=== PATIENT | male | born 1960 | race Caucasian/White ===

== ENCOUNTER 2024-04-09 15:04 | Emergency (ER) | payer BC, SELFPAY ==
[2024-04-09 15:12] VITALS: BP 132/82; PULSE 66; RESP 16; TEMP 36.5; O2SAT 96; BMI 26.6
--- NOTE | 2024-04-09 16:06 | ED_ITS ---
HPI - General Adult General Chief complaint: Laceration/Wound Stated complaint: Stitches, head injury, Time Seen by Provider: 04/09/24 15:29 History of Present Illness HPI narrative: Patient is a 64 year white male who was skating with his grandson, he is getting backwards apparently fell down thinks he might have got cut by his grandson skate over his right eye he has got about a 2-1/2 inch laceration over his right eye brow. Good hemostasis it is gaping slightly. He has no headache no nausea, no vomiting, did not report hitting his head hard. Does not have a headache. He is not on any blood thinners. He has got no full full call neurologic findings. His reports that when she is on fall he did slide on the ice. Certainly could have cut himself on the ice as well. Related Data Home Medications ?Medication ?Instructions ?Recorded ?Confirmed No Known Home Medications 04/09/24 04/09/24 Allergies Allergy/AdvReac Type Severity Reaction Status Date / Time No Known Drug Allergies Allergy Verified 04/09/24 15:18 Review of Systems Status of ROS: Reports: 6 or more systems reviewed and unremarkable except as noted in History and below [facility] Social History Smoking Status: Never smoker How often do you have a drink containing alcohol: never AUDIT-C Alcohol total score: 0 Non-prescribed substance use: denies use Exam Narrative: Exam Narrative: Objective: Patient's vital signs are within normal limits He is alert orient x3 no distress He has got about a 2-1/2 inch laceration over his right eyebrow in the Nikky line area running from medial to lateral in the shape of his eyebrow. Gape slightly It is somewhat deep, but he has good eye opening and closure with good muscular action. I do not see any muscular rents or damage to the muscles around the eye. I am able to deeply clean the wound irrigated and injected with 1% xylocaine without epinephrine for anesthesia. He has no evident eye trauma his gross visual acuity is normal. Const: Vital Signs, click to edit/add: Vital Signs - 24 hr 04/09/24 15:12 Temperature 97.7 F Pulse Rate [Left P ulse Oximeter] 66 Respiratory Rate 16 Blood Pressure [Ri ght Upper Arm] 132/82 Pulse Oximetry 96 Oxygen Delivery Me thod Room Air Course Vital Signs Vital signs: Initial Vital Signs Temperature 97.7 F 04/09/24 15:12 Temperature Source Oral 04/09/24 15:12 Pulse Rate 66 04/09/24 15:12 Respiratory Rate 16 04/09/24 15:12 Blood Pressure 132/82 04/09/24 15:12 Blood Pressure Mean 98 04/09/24 15:12 Blood Pressure Position Sitting 04/09/24 15:12 Pulse Oximetry 96 04/09/24 15:12 Oxygen Delivery Method Room Air 04/09/24 15:12 Vital Signs Temperature 97.7 F 04/09/24 15:12 Pulse Rate 66 04/09/24 15:12 Respiratory Rate 16 04/09/24 15:12 Blood Pressure 132/82 04/09/24 15:12 Pulse Oximetry 96 04/09/24 15:12 Oxygen Delivery Method Room Air 04/09/24 15:12 Temperature 97.7 F 04/09/24 15:12 Pulse Rate 66 04/09/24 15:12 Respiratory Rate 16 04/09/24 15:12 Blood Pressure 132/82 04/09/24 15:12 Pulse Oximetry 96 04/09/24 15:12 Oxygen Delivery Method Room Air 04/09/24 15:12 Medical Decision Making MDM Narrative Medical decision making narrative: [age] year white male up-to-date on tetanus without any significant medical history, presents with a large laceration over his right eye. It was closed with 3 simple and interrupted Vicryl sutures 2 Perclose wound edge closure these are absorbable and then 3 and 4-0 simple interrupted Ethilon superficially. Good skin edge approximation good hemostasis there were 7 sutures put in super specially. Patient reviewed the repair after it was completed he felt good about it as well. His is also here and agreed that it looks adequate. Careful examination after repair shows good eye closure on eye opening, no abnormal medial lateral eye movements. Normal gaze. Normal light reflex. Patient should get his sutures out in about 6-7 days I will put on Keflex 500 q.i.d. x7 days, Tylenol as needed, avoid Advil or aspirin. Would also recommend close head trauma observation q.2 hours for 8 hours. This was discussed in detail with the including pupil inequality, nausea vomiting, somnolence. They will call back there is question concerns. Medication was dispensed through [facility] Discharge Plan Discharge Clinical Impression: Laceration Patient Disposition: Home w/ Parent or Adult Condition: Improved Additional Instructions: Removal in 6-7 days. Keflex 500 q.i.d. x5 days. Tylenol as needed, avoid aspirin or Advil. Light activity for the next several days. Closed head trauma observation for the next 8 hours q.2 hours check for pupils, nausea, headache. Return if problems or concerns. Watch for redness infection. You are up-to-date on your tetanus shot. Activity Level: Light activity Discharge Diet: Regular Prescriptions: No Action No Known Home Medications Stand Alone Forms: [employer] Info Instructions
--- OUTSIDE RECORDS SUMMARY | 2024-04-09 16:13 | XMS_ITS | Clinical Summary ---
Author Organization [facility] Address [place], [place] [address] Care Team Providers Care Media Clerk Name Role Phone Ugo Gonzalez MD Primary Care Provider Allergies No known active allergies Medications benzonatate (TESSALON) 100 mg capsuleIndicatio ns:Pneumonia due to COVID-19 virus Take 1 Capsule (100 mg) by mouth 3 times daily if needed for Cough. 60 Capsule 11/15/2020 1:30 PM CDT 1 Active albuterol HFA (PRO-AIR; VENTOLIN; PROVENTIL) 90 mcg/actuation inhalerIndicatio ns:Pneumonia due to COVID-19 virus Inhale 2 Puffs by mouth every 2 hours if needed for cough, shortness of breath. (MAX RECOMMENDED DOSE IS 12 PUFFS PER DAY) 8.5 g 11/15/2020 1:30 PM CDT 1 Active inhalational spacing device (E-Z Spacer)Indicatio ns:Pneumonia due to COVID-19 virus For home use. 1 Each 1 Active oxygen-air delivery systems (HOME OXYGEN)Indicatio ns:Pneumonia due to COVID-19 virus Oxygen for home use. Liters per minute: 1 per nasal cannula at rest, 2 per nasal cannula with activity. Frequency of use: Continuous with portability.;. Length of need: 6 Months. 1 Each 1 Active famotidine (PEPCID) 20 mg tabletIndication s:COVID-19 virus infection Take 1 Tablet (20 mg) by mouth 2 times daily. 20 Tablet 1 Active predniSONE (DELTASONE) 50 mg tab tabletIndication s:COVID-19 virus infection One po QAM as needed symptoms. 10 Tablet 1 Active predniSONE (DELTASONE) 50 mg tab tabletIndication s:COVID-19 virus infection One po QAM as needed symptoms. 10 Tablet 1 Active tadalafiL (CIALIS;ADCIRCA) 20 mg tabletIndication s:Erectile dysfunction of organic origin Take 1 tablet by mouth once daily if needed for Erectile Dysfunction. Take 30 minutes before sexual activity. 18 Tablet 3 2 Active Active Problems Problem Noted Date Diagnosed Date Pneumonia due to COVID-19 virus 11/15/2020 BPH with urinary obstruction 01/09/2020 Erectile dysfunction 01/09/2020 Strain of left rotator cuff capsule 09/14/2018 Malignant melanoma of back 05/11/2016 Overview (05/11/2016): In situ; diagnosis 01/2011. Follows with derm Colon polyp 05/11/2016 Overview (08/03/2021): Scope 08/20, recheck 3 years Resolved Problems Problem Noted Date Diagnosed Date Resolved Date Acute pain of left shoulder 09/14/2018 01/08/2020 Encounters Date Type Department Care Team Description 04/09/2024 2:10 PM SLURRY PLANT OPERATOR Office Visit [facility] [id number] [id number] Bhargavi Guevara, BRY Laceration 04/09/2024 Travel from Last 3 Months Immunizations Name Administration Dates Next Due Hepatitis A (Adult) 06/24/2012,12/09/2011 Td (Age >=7 Years) 04/18/2002 Tdap 12/09/2011 Family History Medical History Relation Name Comments Diabetes Brother Other Father alz 78 Dementia Mother alive Relation Name Status Comments Brother Father Mother Social History Tobacco Use Types Packs/Day Years Used Date Smoking Tobacco: Never Smokeless Tobacco: Never Alcohol Use Standard Drinks/Week Comments No 0 (1 standard drink = 0.6 oz pur e alcohol) PHQ-2 Answer Date Recorded PHQ-2 TOTAL SCORE 0 01/09/2020 Social Connections Answer Date Recorded Frequency of Communication with Friends and Fami ly Not on file 03/01/2021 Financial Resource Strain Answer Date R ecorded Difficulty of Paying Living Expenses Not on file 03/01/2021 Difficulty of Paying Living Expenses Not on file 03/01/2021 Sex and Gender Information Value Date Recorded Sex Assigned at Not on file Legal Sex Male 8:16 AM SLURRY PLANT OPERATOR Gender Identity Not on file Sexual Orientation Not on file 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 file Not on file Not on file Obstetrics History Last Filed Vital Signs Vital Sign Reading Time Taken Comments Blood Pressure 172/81 04/09/2024 2:22 PM SLURRY PLANT OPERATOR Pulse 70 04/09/2024 2:22 PM SLURRY PLANT OPERATOR Temperature 36.3 C (97.4 F) 04/09/2024 2:22 PM SLURRY PLANT OPERATOR Respiratory Rate 18 04/09/2024 2:22 PM SLURRY PLANT OPERATOR Oxygen Saturation 95% 04/09/2024 2:22 PM SLURRY PLANT OPERATOR Inhaled Oxygen Concentration - - Weight 87.7 kg (193 lb 6.4 oz) 04/09/2024 2:22 P M SLURRY PLANT OPERATOR Height 174 cm (5' 8.5) 01/09/2021 12:36 PM SLURRY PLANT OPERATOR Body Mass Index 28.98 01/09/2021 12:36 PM SLURRY PLANT OPERATOR Plan of Treatment Health Maintenance Due Date Last Done Comments Hepatitis C screening for ag e 18-79 01/18/1976 Pneumococcal series for age 50+ (1 of 1 - PCV) 01/18/2008 Zoster (shingles) series for age 50+ (1 of 2) 01/18/2008 Depression screening for age 12+ 01/08/2021 01/09/2020, 03/18/2018, 05/05/2016 Tetanus booster 12/08/2021 12/09/2011, 04/18/2002 BMI (ht and wt on same day) for age 18+ 01/09/2022 01/09/2021, 01/09/2020, 11/02/2018, Additional history exists COVID-19 vaccine series ( season) 2023 Influenza for age 65+ 10/31/2023 Lipids for age 45-75 01/09/2026 01/09/2021, 01/09/2020, 05/05/2016, Additional history exists Colonoscopy through age 75 07/31/203107/30, 07/06/2016, 02/19/2011 RSV vaccine for adults or (1 - 1-dose 75+ series) 2033 Tdap Completed 12/09/2011 Procedures Procedure Name Priority Date/Time Associated Diagnosis Comments SCAN-COLONOSCOPY 07/30/2021 7:30 AM CDT LIPID PANEL W REFLEX MEASURED LDL Routine 01/09/2021 1:14 PM SLURRY PLANT OPERATOR Mixed hyperlipidemia from Last 3 Months or Most Recently Relevant to Health Maintenance Results * SCAN-COLONOSCOPY (07/30/2021 7:30 AM CDT) Narrative Procedure Note Gil Kenyon MD - 07/30/2021 6:42 AM CDT [facility] [address] [place] [address], [address], [place] [address] Patient Name: Carmina Menjivar Gender: Male Exam Date: 07/30/2021 Visit Number: [id number] Age: 61 Years Date of : 1960 Attending MD: Gil Monk MD Medical Record#: [id number] Procedure: Colonoscopy Indications: Previous adenomatous polyp(s) Referring MD: Referral Self Primary MD: Uog Gonzalez MD Medications: Intra Procedure Medications: Patient received monitored anesthesia care. Complications: No immediate complications Procedure: An examination of the heart and lungs was performed and found to be withinacceptable limits. . The patient was therefore deemed a reasonablecandidate for endoscopy and sedation. The risks and benefits of the procedure were explained to the patient.After obtaining informed consent, the patient received monitoredanesthesia care and I passed the scope without difficulty via the rectum to the cecum. The appendiceal orificeand ic valve were identified. The scope was retroflexed during theexamination The quality of the prep was excellent (Miralax/Gatorade/2tablets Bisacodyl/Magnesium Citrate). This was a complete examination throughout the entire colon. Findings: Polyp location: cecum. Quantity: 2. Size: 5 mm, 6 mm. Polyp shape:sessile. Maneuver: polypectomy was performed with a cold snare. Removal: complete. Retrieval: complete. Bleeding: none. Polyp location: ascending colon. Quantity: 1. Size: 3 mm. Polyp shape:sessile. Maneuver: polypectomy was performed with a cold snare . Removal: complete. Retrieval: complete. Bleeding: none. Polyp location: transverse colon. Quantity: 2. Size: 3 mm, 4 mm.Polyp shape: sessile. Maneuver: polypectomy was performed with a cold snare . Removal: complete. Retrieval: complete. Bleeding: none. Location: descending colonQuantity: 1. Size: 4 mm. Polyp shape:sessile. Maneuver: polypectomy was performed with a cold snare . Removal: complete. Retrieval: complete. Bleeding: none. Anal canal: hypertrophied papilla Hemorrhoids. Internal and external hemorrhoids without bleeding. Remainder of the exam is normal. Impression: Colorectal polyps Internal and external hemorrhoids without complication History of adenomatous polyp of colon Internal hemorrhoids were found on your exam. Please review theinformation packet provided to you. If you are having symptoms and wouldlike to consider treatment, please let us know. Preliminary Plan: The patient and their physician will receive a copy of the pathologyreport as well as pathology-based recommendations for future screening orsurveillance. Pathology Results: A: COLON, CECUM, POLYPS: 1. Tubular adenoma (1) and sessile serrated adenoma (1) 2. Negative for high grade dysplasia 3. Per the colonoscopy report: a. Polyp sizes: 5 mm and 6 mm b. Resection: Complete c. Retrieval: Complete B: COLON, ASCENDING, POLYP: 1. Tubular adenoma 2. Negative for high grade dysplasia 3. Per the colonoscopy report: a. Polyp size: 3 mm b. Resection: Complete c. Retrieval: Complete C: COLON, TRANSVERSE, POLYPS: 1. Tubular adenomas (2) 2. Negative for high grade dysplasia 3. Per the colonoscopy report: a. Polyp sizes: 3 mm and 4 mm b. Resection: Complete c. Retrieval: Complete D: COLON, DESCENDING, POLYP: 1. Tubular adenoma 2. Negative for high grade dysplasia 3. Per the colonoscopy report: a. Polyp size: 4 mm b. Resection: Complete c. Retrieval: Complete MICROSCOPIC A: Performed B: Performed C: Performed D: Performed Electronically signed by: Hipolito Caicedo MD Interpreted at [facility] [place], [address] [place] [address] Orders Instruction(s)/Education: Instruction/Education Timeframe Assessment Colon Cancer Prevention K63.5 Colon Polyps K63.5 Hemorrhoids K63.5 High Fiber Diet K63.5 Patient Education given to patient: Colon: Hemorrhoids Hemorrhoid Banding Final Plan: Repeat colonoscopy in 3 years. We will attempt to contact you at appropriate intervals via U.S. mail. Wemay not be able to find you or contact you at that time, therefore youshould know that the responsibility for following our recommendation restswith you. If you don't hear from us at the time your procedure is due,please contact our office to schedule an appointment. If your contactinformation should change, please contact our office so that we can updateyour record. _Electronically signed by: Gil Monk MD 07/30/2021 cc: Ugo Gonzalez MD Gil Kenyon MD OTHER Yazmin mack Result * (ABNORMAL) LIPID PANEL W REFLEX MEASURED LDL (01/09/2021 1:14 PM SLURRY PLANT OPERATOR) CHOLESTEROL,TOTAL 224(H) 100 - 199 mg/dL 01/09/2021 7:21 PM SLURRY PLANT OPERATOR [facility] TRIGLYCERIDES 152(H) <150 mg/dL 01/09/2021 7:21 PM SLURRY PLANT OPERATOR [facility] HDL CHOLESTEROL 45 >40 mg/dL 7:21 PM SLURRY PLANT OPERATOR [facility] NON-HDL CHOLESTEROL 179(H) <145 mg/dl 01/09/2021 7:21 PM SLURRY PLANT OPERATOR [facility] CHOL/HDL RATIO 4.98(H) <4.50 01/09/2021 7:21 PM SLURRY PLANT OPERATOR [facility] LDL CHOLESTEROL 149(H) <=130 mg/dL 01/09/2021 7:21 PM SLURRY PLANT OPERATOR [facility] VLDL CHOLESTEROL 30 <=30 mg/dL 01/09/2021 7:21 PM SLURRY PLANT OPERATOR [facility] PROVIDER ORDERED STATUS RANDOM 01/09/2021 7:21 PM SLURRY PLANT OPERATOR [facility] Blood BLOOD SPECIMEN / Unknown Venipuncture / Unknown 01/09/2021 1:14 PM SLURRY PLANT OPERATOR 01/09/2021 1:14 PM SLURRY PLANT OPERATOR Ugo Gonzalez MD CHEMISTRY Final Result [facility] [address] [place] [address], [place] from Last 3 Months or Most Recently Relevant to [place] [phone] [facility] [place] [address] [facility] Advance Directives * Full Code (Latest Code Status on File) Date Activated Date Inactivated Comments 11/14/2020 3:35 AM 11/15/2020 6:07 PM Question Answer Comments Code Status Discussion: Discussed Care Teams Media Clerk Relationship Specialty [place] [address] [address] [place] [address] PCP - General Family Practice 12/29/16
--- OUTSIDE RECORDS SUMMARY | 2024-04-09 16:13 | XMS_ITS | Clinical Summary ---
Author Organization [facility] Address [address] [place] [id number] Care Team Providers Care Cdl Driver Name Role Phone Clinic, [facility] Primary Care Provider + Abraham Gentile MD Unavailable [phone] Allergies No known active allergies Medications * This document contains information received from the source organization and may not represent a complete record from that organization. oxyCODONE IR (ROXICODONE) 5 MG tabletIndicatio ns:Ankle instability, left Take 1-2 tablets (5-10 mg) by mouth every 3 hours as needed for breakthrough pain, pain or other (Moderate to Severe) 60 tablet 7 Active gabapentin (NEURONTIN) 100 MG capsuleIndicati ons:Ankle instability, left Take one capsule by mouth at bedtime first night, then increase to two capsules by mouth at bedtime second night and following nights. 30 capsule 7 Active methocarbamol (ROBAXIN) 750 MG tabletIndicatio ns:Ankle instability, left Take 1 tablet (750 mg) by mouth every 6 hours as needed for muscle spasms (muscle spasm) 60 tablet 7 Active morphine (MS CONTIN) 15 MG 12 hr tabletIndicatio ns:Ankle instability, left Take 1 tablet (15 mg) by mouth every 12 hours maximum 2 tablet(s) per day 60 tablet 7 Active ondansetron (ZOFRAN) 4 MG tabletIndicatio ns:Ankle instability, left Take 1 tablet (4 mg) by mouth every 8 hours as needed for nausea 18 tablet 1 7 Active Encounters * This document contains information received from the source organization and may not represent a complete record from that organization. Date Type Department Care Team Description 02/02/2024 Travel from Last 3 Months Social History Tobacco Use Types Packs/Day Years Used Date Smoking Tobacco: Never Smokeless Tobacco: Never Alcohol Use Standard Drinks/Week Comments No 0 (1 standard drink = 0.6 oz pur e alcohol) Sex and Gender Information Value Date Recorded Sex Assigned at Not on file Legal Sex Male 4:22 AM COPYWRITING INTERN Gender Identity Not on file Sexual Orientation Not on file Last Filed Vital Signs Vital Sign Reading Time Taken Comments Blood Pressure 140/77 01/14/2017 11:04 AM COPYWRITING INTERN Pulse - - Temperature 36.5 C (97.7 F) 01/14/2017 11:04 AM COPYWRITING INTERN Respiratory Rate 15 01/14/2017 11:04 AM COPYWRITING INTERN Oxygen Saturation 97% 01/14/2017 11:04 AM COPYWRITING INTERN Inhaled Oxygen Concentration - - Weight 78.9 kg (174 lb) 01/14/2017 6:17 AM COPYWRITING INTERN Height 175.3 cm (5' 9) 01/14/2017 6:17 AM COPYWRITING INTERN Body Mass Index 25.7 01/14/2017 6:17 AM COPYWRITING INTERN Plan of Treatment Scheduled Procedures Name Priority Associated Diagnoses Date/Ti me SEPTOPLASTY, NOSE Nasal obstruction Nasal septal deformity Health Maintenance Due Date Last Done Comments ADVANCE CARE PLANNING 1960 ANNUAL REVIEW OF HM ORDERS 1960 [address] COLONOGRAPHY 1960 FIT 1960 FLEX SIG 1960 GLUCOSE 1960 sDNA (Cologuard) 1960 HEPATITIS C SCREENING 01/18/1976 LIPID 1998 Pneumococcal Vaccine: 50+ Years (1 of 1 - PCV) 01/18/2008 ZOSTER IMMUNIZATION (1 of 2) 01/18/2008 FALL RISK ASSESSMENT 2023 MEDICARE ANNUAL WELLNESS VISIT 2023 01/09/2021, 01/09/2020 COVID-19 Vaccine (1 - 2023-2 5 season) 2023 INFLUENZA VACCINE (#1) 2023 PHQ-2 (once per calendar year) 2024 COLONOSCOPY 07/31/2031 07/30/2021 COLORECTAL CANCER SCREENING 07/31/2031 RSV VACCINE (1 - 1-dose 75+ series) 2033 DTAP/TDAP/TD IMMUNIZATION (3 - Td or Tdap) 09/22/2033 09/23/2023, 12/09/2011, 04/18/2002 HPV IMMUNIZATION Aged Out No longer e ligible based on patient's age to complete this topic MENINGITIS IMMUNIZATION Aged Out No l onger eligible based on patient's age to complete this topic Medical Devices Implanted Type Area Senior [employer] Applications Developer Device Identifier Shelf Expiration Date Model / Serial / Lot Versasheild 2x2cm Implanted:Qty: 1 on 01/14/2017 by Ulises Church MD at Left: Ankle 07/15/2019 [id number] / [id number] / [place] [address] [place] [address] [facility] Care Teams Cdl Driver Relationship Specialty Start Date End Date [facility] [address] [place] [address] PCP - General 12/25/16 Abraham Gentile MD [facility] [address] [place] [address] Assigned Surgical Provider 12/22/23
--- OUTSIDE RECORDS SUMMARY | 2024-04-09 16:13 | XMS_ITS | Continuity of Care Document ---
Author Organization [facility] Address [address] [address] [place] [address] Phone Care Team Providers Care Entertainment Manager Name Role Phone Emely Senior CRNA Unavailable Unavailable Allergies, Adverse Reactions, Alerts Substance Reaction Status Criticality No Known allergies Medications Medication Instructions Dosage Effective Dates (start - stop) Status Comments No Drug Therapy Prescribed Procedures Procedure Date Colonoscopy Flex; W/remov Les- Level Iv-surg Path Gross/micro Colonoscopy Flex; W/remov Les- 17 Level Iv-surg Path Gross/micro Colonoscopy Flex; W/remov Les- 11 Level Iv-surg Path Gross/micro 11 Advance Directives Directive Yes / No Effective Date File Name No Information Encounters Encounter Description Practice Location Reason(s) For Visit Diagnoses Date Provider Providers Copied on Encounter [facility], [address] [address], [place], [id number], [place] tel:[phone] [facility] No Information 2 Parrish Han. [address] [facility], [place], [place], [id number], [place]. tel:[phone] Referring Provider: Gil Monk MD , [address] [facility] [address], [place], [address] . tel:[phone] [facility], [address] [address], [place], [id number], [place] tel:[phone] [facility] Colorectal polypsInternal and external hemorrhoids without complicationHisto ry of adenomatous polyp of colonEncounter for screening for malignant neoplasm of colonBenign neoplasm of cecumBenign neoplasm of ascending colonBenign neoplasm of ascending colonBenign neoplasm of cecumPersonal history of colonic polyps 2 Lacho Cordero. [address], [id number], [place]. tel:[phone] Referring Provider: Referral Self, USE FOR SELF REFERRALS. [facility], [address] [address], [facility] [place], [id number], [place] tel:[phone] [facility] No Information 2 Lacho Coredro. [address], [id number], [place]. [phone] [facility], [address] [address], [facility] [place] [id number], [place] tel:[phone] [facility] Colorectal polyp detected on colonoscopyIntern al and external hemorrhoids without complicationHisto ry of adenomatous polyp of colonEncounter for screening for malignant neoplasm of colonResidual hemorrhoidal skin tagsPolyp of colonPersonal history of colonic polyps 7 Lacho Cordero. [address] [place] [address], [id number], [place]. tel:[phone] Referring Provider: Referral Self, USE FOR SELF REFERRALS. [facility], [address] [address], [place], [id number], [place] tel:[phone] [facility] Polyp-intes/rect/ stom-unc BehColon Cancer ScreeningRectal Polyp/BenignColon Cancer ScreeningRectal Polyp/Benign Jan- 1 Yasir Trinidad. [address], [id number], [place]. tel:[phone] Family History Family Member Type Diagnosis Age At Onset No Information Immunizations Vaccine Date Status Comments Havrix administered Note: [facility] bi-d irectional interface ; Source: Other Registry Havrix administered Note: [facility] bi-d irectional interface ; Source: Other Registry tetanus toxoid, reduced diphtheria toxoid, and acellular pertussis vaccine, adsorbed administered Note: [facility] bi-direct ional interface ; Source: Other Registry Payers Payer name Insurance type Covered green party ID [employer] tierna(s) [employer] [facility] [id number] Social History Type Description Quantity Date Captured Comments Sex Male Smoking Status No Information Chief Complaint And Reason For Visit No Information Reason For Referral Reason For Referral No Information History Of Present Illness Encounter Date Complaint History Of Prese nt Illness No Information Functional Status Date Functional Assessmen t No Information Medications Administered Medication Instructions Dosage Effective Dates (start - stop) Status Comments No Drug Therapy Prescribed Instructions Date Instruction Additional Infor kayode Colon Cancer Prevention Related to Colorectal polyps Colon Polyps Related to Color ectal polyps Hemorrhoids Related to Color ectal polyps High Fiber Diet Related to Color ectal polyps Colon Polyps Related to Color ectal polyp detected on colonoscopy Colon Cancer Prevention Related to Colorectal polyp detected on colonoscopy Hemorrhoids Related to Color ectal polyp detected on colonoscopy High Fiber Diet Related to Color ectal polyp detected on colonoscopy Assessments Type Assessment Date No Information Patient Care Teams Name Effective Dates (start - stop) Status Members No Information
[2024-04-09] MEDS: cephALEXin 500 MG CAPSULE PO (16:27)
[2024-04-09] MEDS: LIDOCAINE 1% MDV 20 ML INJECTION (16:51)
== END 2024-04-09 16:45 | disposition home or self-care (01) ==
LOC: ED 16:11
PROVIDERS: Emergency Provider Family Medicine; PCP Nurse Practitioner Family
DX: S01.111A Laceration without foreign body of right eyelid and periocular area, initial encounter (principal); W26.9XXA Contact with unspecified sharp object(s), initial encounter; Y93.21 Activity, ice skating
CPT/HCPCS: 12011; 99283; 99284; J2003; A9270